=== PATIENT | female | born 1955 | race Caucasian/White ===

== ENCOUNTER → 2016-10-05 | Outpatient (CLI) | payer BC | LOC: RAD 11:23 | PROVIDERS: ATTEND Family Medicine | DX: Z12.31 Encounter for screening mammogram for malignant neoplasm of breast (principal) ==

== ENCOUNTER → 2016-12-19 | Outpatient (REF) | payer BC ==
[~2016-12-19] MED LIST: ASPI-345 PO; BRIM5DRO2 OP; CHOL200018 PO; CHOL200025 PO; CYAN1TAB26 PO; ESTR10TA VG; METO-270 PO; MIRA25TA PO; MULT-55 PO; NITR100C3 PO; OMEG1CAP58 PO; OMEP20CA6 PO; ONDAN4ODT PO; OSLT75C PO
== END ==
LOC: LAB 10:00
PROVIDERS: ATTEND Family Medicine
DX: R23.8 Other skin changes (principal)
CPT/HCPCS: 85610; 85730